=== PATIENT | male | born 1965 | race Caucasian/White ===

== ENCOUNTER 2019-09-15 18:53 | Observation (INO) ==
[2019-09-15] MEDS ORDERED: Nitroglycerin 0.4 MG TAB.SUBL SL PRN ×2 (19:22→22:50)
[2019-09-15 19:29] LABS: Basophils % 0.3 %; Eosinophils # 0.1 K/mcL (0.0-0.6); Eosinophils % 0.5 %; Hematocrit 40.8 % (37.5-50.1); Hemoglobin 14.2 g/dL (12.9-16.9); Immature Granulocytes % 0.7 % (0-4); Lymphocytes # 2.5 K/mcL (0.6-4.6); Lymphocytes % 16.2 %; Mean Corpuscular HGB Conc 34.8 g/dL (31.6-35.5); Mean Corpuscular Hemoglobin 30.2 pg (28.0-33.3); Mean Corpuscular Volume 86.8 fL (83.0-100.0); Mean Platelet Volume 9.4 fL (9.4-12.4); Monocytes # 1.4 K/mcL (0.0-1.3); Monocytes % 8.7 %; Neutrophils # 11.4 K/mcL (1.6-8.9); Platelet Count 194 K/mcL (140-400); Red Cell Distribution Width 14.2 % (11.5-14.5); Segmented Neutrophils % 73.6 %; White Blood Count 15.5 K/mcL (4.3-11.1)
[2019-09-15 19:34] LABS: Basophils # 0.1 K/mcL (0.0-0.2)
[2019-09-15 19:38] LABS: INR 1.2; Prothrombin Time 13.6 Seconds (9.4-12.1)
[2019-09-15 19:39] LABS: Activated Partial Thrombo Time 29.7 Seconds (26.0-36.0)
[2019-09-15 19:45] LABS: Troponin I < 0.03 ng/mL (< 0.04)
[2019-09-15 19:48] LABS: Amylase 306 Units/L (29-103); Lipase 498 Units/L (11-82)
[2019-09-15 19:49] LABS: Albumin 4.1 g/dL (3.5-5.7); Albumin/Globulin Ratio 1.1 (1.1-2.2); BUN/Creatinine Ratio 29 (6-26); Bilirubin,Direct 0.3 mg/dL (0.0-0.2); Bilirubin,Indirect 0.8 mg/dL (0.0-1.0); Bilirubin,Total 1.1 mg/dL (0.3-1.0); Blood Urea Nitrogen 29 mg/dL (6-20); Calcium 9.5 mg/dL (8.6-10.3); Carbon Dioxide 25 mEq/L (23-29); Chloride 100 mEq/L (98-107); Globulin 3.7 g/dL (2.4-3.5); Glucose 129 mg/dL (70-105); Osmolality,Calculated 288 (280-300); Potassium 3.3 mEq/L (3.5-5.1); Sodium 135 mEq/L (136-145); Total Protein 7.8 g/dL (6.4-8.9); eGFR For African Americans > 60 (> 60); eGFR For Non-African Americans > 60 (> 60)
[2019-09-15] MEDS ORDERED: Isovue-370 500 ML BOTTLE IVP ONE (19:56)
[2019-09-15] MEDS ORDERED: *HR* HYDROmorphone (PF) 1 MG/ML SYRINGE IVP ONE (21:00)
[2019-09-15] MEDS ORDERED: *HR* Ticagrelor 90 MG TABLET PO STA (21:57)
[2019-09-15] MEDS ORDERED: Morphine Sulfate 2 MG/ML SYRINGE IVP PRN ×2 (22:25→22:50)
[2019-09-15] MEDS ORDERED: *HR* Enoxaparin 40 MG/0.4 ML SYRINGE SQ ONE ×2 (22:25→22:50)
[2019-09-15] MEDS ORDERED: Naloxone 0.4 MG/ML INJ IVP PRN (22:50)
[2019-09-15] MEDS ORDERED: Ondansetron 4 MG/2 ML VIAL IVP PRN (22:50)
[2019-09-15] MEDS: *HR* HYDROcodone/Acet 5/325 mg TABLET PO PRN (23:33)
[2019-09-16] MEDS ORDERED: Naloxone 0.4 MG/ML INJ IVP PRN (00:37)
[2019-09-16] MEDS: Ringers Solution, Lactated 1,000 ML IVC SCH ×3 (01:00→06:45)
[2019-09-16] MEDS: *HR* Labetalol 20 MG/4 ML SYRINGE IVP PRN ×2 (01:01→21:39)
[2019-09-16] MEDS: *HR* HYDROmorphone (PF) 1 MG/ML SYRINGE IVP PRN ×3 (01:53→10:41)
[2019-09-16] MEDS ORDERED: Pantoprazole 40 MG VIAL IVP SCH (06:00)
[2019-09-16] MEDS: Pantoprazole 40 MG VIAL IVP SCH ×2 (06:31→17:21)
[2019-09-16 08:23] LABS: Basophils % 0.2 %; Eosinophils # 0.1 K/mcL (0.0-0.6); Hematocrit 35.8 % (37.5-50.1); Hemoglobin 12.2 g/dL (12.9-16.9); Immature Granulocytes % 0.5 % (0-4); Lymphocytes # 1.8 K/mcL (0.6-4.6); Lymphocytes % 19.9 %; Mean Corpuscular HGB Conc 34.1 g/dL (31.6-35.5); Mean Corpuscular Hemoglobin 30.1 pg (28.0-33.3); Mean Corpuscular Volume 88.4 fL (83.0-100.0); Mean Platelet Volume 9.7 fL (9.4-12.4); Monocytes # 0.8 K/mcL (0.0-1.3); Monocytes % 9.1 %; Neutrophils # 6.3 K/mcL (1.6-8.9); Platelet Count 141 K/mcL (140-400); Red Blood Count 4.05 M/mcL (4.19-5.50); Red Cell Distribution Width 14.3 % (11.5-14.5); Segmented Neutrophils % 69.3 %; White Blood Count 9.1 K/mcL (4.3-11.1)
[2019-09-16] MEDS: Aspirin Enteric Coated 81 MG Tablet PO SCH (08:29)
[2019-09-16] MEDS: lisinopriL 20 MG TABLET PO SCH (08:29)
[2019-09-16] MEDS: carvediloL 6.25 MG TABLET PO SCH ×2 (08:29→17:21)
[2019-09-16] MEDS: *HR* Ticagrelor 90 MG TABLET PO SCH ×2 (08:30→21:41)
[2019-09-16] MEDS: *HR* HYDROcodone/Acet 5/325 mg TABLET PO PRN ×2 (08:35→15:01)
[2019-09-16 08:42] LABS: Alanine Aminotransferase 78 Units/L (7-52); Albumin 3.4 g/dL (3.5-5.7); Albumin/Globulin Ratio 1.1 (1.1-2.2); Alkaline Phosphatase 110 Units/L (34-104); Aspartate Amino Transferase 32 Units/L (13-39); BUN/Creatinine Ratio 26 (6-26); Bilirubin,Total 0.9 mg/dL (0.3-1.0); Blood Urea Nitrogen 25 mg/dL (6-20); Calcium 8.8 mg/dL (8.6-10.3); Carbon Dioxide 29 mEq/L (23-29); Chloride 102 mEq/L (98-107); Globulin 3.1 g/dL (2.4-3.5); Glucose 98 mg/dL (70-105); Osmolality,Calculated 284 (280-300); Potassium 3.3 mEq/L (3.5-5.1); Sodium 135 mEq/L (136-145); Total Protein 6.5 g/dL (6.4-8.9); eGFR For African Americans > 60 (> 60); eGFR For Non-African Americans > 60 (> 60)
[2019-09-16] MEDS: Nicotine 21 MG PATCH.TD24 TD SCH (10:41)
[2019-09-16] MEDS ORDERED: 0.9 % Sodium Chloride 1,000 ML IVC SCH (13:00)
[2019-09-16 14:31] LABS: Amylase 183 Units/L (29-103); Lipase 296 Units/L (11-82)
[2019-09-16] MEDS ORDERED: 0.9 % Sodium Chloride 500 ML IVC ONE (18:06)
[2019-09-16] MEDS: 0.9 % Sodium Chloride 1,000 ML IVC SCH (19:00)
[2019-09-17] MEDS: 0.9 % Sodium Chloride 1,000 ML IVC SCH ×4 (01:45→15:45)
[2019-09-17] MEDS: *HR* HYDROcodone/Acet 5/325 mg TABLET PO PRN (01:50)
[2019-09-17] MEDS: *HR* Labetalol 20 MG/4 ML SYRINGE IVP PRN ×2 (05:27→17:49)
[2019-09-17] MEDS: Pantoprazole 40 MG VIAL IVP SCH ×2 (05:27→17:53)
[2019-09-17 06:01] LABS: Amylase 118 Units/L (29-103); Lipase 157 Units/L (11-82)
[2019-09-17] MEDS: lisinopriL 20 MG TABLET PO SCH (07:34)
[2019-09-17] MEDS: Nicotine 21 MG PATCH.TD24 TD SCH (08:43)
[2019-09-17] MEDS: carvediloL 6.25 MG TABLET PO SCH ×2 (08:43→16:37)
[2019-09-17] MEDS: *HR* Ticagrelor 90 MG TABLET PO SCH ×2 (08:43→22:11)
[2019-09-17] MEDS: Aspirin Enteric Coated 81 MG Tablet PO SCH (08:43)
[2019-09-17 09:08] LABS: Basophils % 0.3 %; Eosinophils # 0.1 K/mcL (0.0-0.6); Eosinophils % 1.5 %; Hemoglobin 12.2 g/dL (12.9-16.9); Immature Granulocytes % 0.3 % (0-4); Lymphocytes # 1.5 K/mcL (0.6-4.6); Lymphocytes % 25.3 %; Mean Corpuscular HGB Conc 33.9 g/dL (31.6-35.5); Mean Corpuscular Hemoglobin 29.9 pg (28.0-33.3); Mean Corpuscular Volume 88.2 fL (83.0-100.0); Mean Platelet Volume 9.7 fL (9.4-12.4); Monocytes # 0.5 K/mcL (0.0-1.3); Monocytes % 8.3 %; Neutrophils # 3.9 K/mcL (1.6-8.9); Platelet Count 144 K/mcL (140-400); Red Blood Count 4.08 M/mcL (4.19-5.50); Red Cell Distribution Width 14.2 % (11.5-14.5); Segmented Neutrophils % 64.3 %; White Blood Count 6.1 K/mcL (4.3-11.1)
[2019-09-17 09:20] LABS: BUN/Creatinine Ratio 18 (6-26); Blood Urea Nitrogen 14 mg/dL (6-20); Calcium 8.6 mg/dL (8.6-10.3); Carbon Dioxide 23 mEq/L (23-29); Chloride 105 mEq/L (98-107); Glucose 97 mg/dL (70-105); Osmolality,Calculated 286 (280-300); Sodium 138 mEq/L (136-145); eGFR For African Americans > 60 (> 60); eGFR For Non-African Americans > 60 (> 60)
[2019-09-17] MEDS ORDERED: 0.9 % Sodium Chloride 1,000 ML IVC SCH (18:45)
[2019-09-18 05:32] LABS: Basophils % 0.3 %; Eosinophils # 0.1 K/mcL (0.0-0.6); Eosinophils % 1.7 %; Hematocrit 37.4 % (37.5-50.1); Hemoglobin 12.5 g/dL (12.9-16.9); Immature Granulocytes % 0.3 % (0-4); Lymphocytes # 1.3 K/mcL (0.6-4.6); Lymphocytes % 22.1 %; Mean Corpuscular HGB Conc 33.4 g/dL (31.6-35.5); Mean Corpuscular Hemoglobin 29.8 pg (28.0-33.3); Mean Corpuscular Volume 89.3 fL (83.0-100.0); Mean Platelet Volume 9.3 fL (9.4-12.4); Monocytes # 0.5 K/mcL (0.0-1.3); Neutrophils # 3.9 K/mcL (1.6-8.9); Platelet Count 152 K/mcL (140-400); Red Blood Count 4.19 M/mcL (4.19-5.50); Red Cell Distribution Width 14.1 % (11.5-14.5); Segmented Neutrophils % 67.6 %; White Blood Count 5.8 K/mcL (4.3-11.1)
[2019-09-18 05:45] LABS: Amylase 93 Units/L (29-103); BUN/Creatinine Ratio 11 (6-26); Blood Urea Nitrogen 11 mg/dL (6-20); Calcium 9.1 mg/dL (8.6-10.3); Carbon Dioxide 29 mEq/L (23-29); Chloride 102 mEq/L (98-107); Glucose 147 mg/dL (70-105); Lipase 193 Units/L (11-82); Osmolality,Calculated 284 (280-300); Potassium 3.7 mEq/L (3.5-5.1); Sodium 136 mEq/L (136-145); eGFR For African Americans > 60 (> 60); eGFR For Non-African Americans > 60 (> 60)
[2019-09-18] MEDS: Pantoprazole 40 MG VIAL IVP SCH (06:46)
[2019-09-18 06:58] VITALS: BP 128/17
[2019-09-18] MEDS: *HR* Ticagrelor 90 MG TABLET PO SCH (07:34)
[2019-09-18] MEDS: carvediloL 6.25 MG TABLET PO SCH (07:34)
[2019-09-18] MEDS: lisinopriL 20 MG TABLET PO SCH (07:34)
[2019-09-18] MEDS: Aspirin Enteric Coated 81 MG Tablet PO SCH (07:34)
[2019-09-18] MEDS: Nicotine 21 MG PATCH.TD24 TD SCH (07:35)
[2019-09-18] MEDS ORDERED: amLODIPine 5 MG TABLET PO SCH (09:00)
== END 2019-09-18 10:34 | disposition home or self-care (01) ==
LOC: INPGRE 18:53 → EMEROOGRE 18:53 → INPGRE 22:34
PROVIDERS: ADMIT Family Medicine; ATTEND Family Medicine